=== PATIENT | male | born 1960 | race African-American/Black ===

== ENCOUNTER 2016-07-09 11:10 | Emergency (ER) | payer MEDICARE ==
[~2016-07-09] VITALS: Wt 78.0 kg
[~2016-07-09 11:10] MED LIST: IBUP800T25 PO
[2016-07-09] MEDS ORDERED: DIPHENHYDRAMINE 25 MG CAP PO ONE (12:30)
[2016-07-09] MEDS ORDERED: IBUPROFEN 600 MG TAB PO ONE (12:30)
[2016-07-09] MEDS ORDERED: IBUP-1542 PO (12:39)
[2016-07-09] MEDS ORDERED: BACTDS PO (12:39)
[2016-07-09] MEDS ORDERED: CEPH-443 PO (12:39)
[2016-07-09 12:58] VITALS: BP 126/76; PULSE 86; RESP 19; TEMP 98.5
--- NOTE | 2016-07-09 14:46 | ERD ---
ER Documentation Chief Complaint Date/Time DATE: 07/09/16 TIME: 14:44 Chief Complaint PAIN ON TESTICULAR AREA, POSSIBLE ABCESS HPI Patient is a 56-year-old male with no medical problems who presents with scrotal pain. He says that he has "an abscess". He wants antibiotics. Please note the history and physical exam is limited as the patient does have flight of ideas and is difficult to get a history from. Upon review of old medical records the patient has one previous visit to the ER in June 2016. He has had no fevers. He has had no treatment as of yet. ROS All systems reviewed and are negative except as per history of present illness. Medications Home Meds Active Scripts Ibuprofen* (Motrin*) 600 Mg Tab, 600 MG PO Q6H Y for PAIN AND OR ELEVATED TEMP, #30 TAB Prov:GASTON GOMEZ MD 07/09/16 Sulfamethoxazole-Trimethoprim* (Bactrim* DS) 800-160 Mg Tab, 1 TAB PO BID for 7 Days, TAB Prov:GASTON GOMEZ MD 07/09/16 Cephalexin* (Keflex*) 500 Mg Capsule, 500 MG PO QID for 7 Days, CAP Prov:GASTON GOMEZ MD 07/09/16 Ibuprofen* (Motrin*) 800 Mg Tab, 800 MG PO Q6H Y for PAIN AND OR ELEVATED TEMP, #30 TAB Prov:LENORA GONZALEZ MD 06/02/16 PMhx/Soc Hx Psychiatric Problems: Yes (talking to self) Hx Alcohol Use: No Hx Substance Use: No Hx Tobacco Use: No Smoking Status: Never smoker FmHx Family History: No diabetes Physical Exam Vitals Vital Signs Date Time Temp Pulse Resp B/P Pulse Ox O2 Delivery O2 Flow Rate FiO2 07/09/16 12:58 98.5 86 19 126/76 100 Room Air 07/09/16 11:22 97.2 67 18 120/78 100 Physical Exam Const: No acute distress Head: Atraumatic Eyes: Normal Conjunctiva ENT: Normal External Ears, Nose and Mouth. Neck: Full range of motion..~ No meningismus. Resp: Clear to auscultation bilaterally Cardio: Regular rate and rhythm, no murmurs Abd: Soft, non tender, non distended. Normal bowel sounds Skin: No petechiae or rashes Back: No midline or flank tenderness Ext: No cyanosis, or edema Neur: Awake and alert : Patient only has one testicle from previous testicular surgery as a child , there is mild scrotal erythema but no signs of testicular torsion at this time , no signs of scrotal abscess, no Otilio's gangrene Results 24 hrs Current Medications Medications (Trade) Dose Ordered Sig/Zayda Route PRN Reason Start Time Stop Time Status Last Admin Dose Admin Diphenhydramine HCl (Benadryl) 25 mg ONCE ONCE PO 07/09/16 12:30 07/09/16 12:31 DC Ibuprofen (Motrin) 600 mg ONCE ONCE PO 07/09/16 12:30 07/09/16 12:31 DC Procedures/MDM Patient is a 56-year-old male who presents with what appears to be a scrotal cellulitis. I believe outpatient management is appropriate with Keflex and Bactrim. I doubt testicular torsion. The patient is stable for outpatient management. He can return for any worsening symptoms. The patient understands the plan is okay for discharge at this time. He could return for any worsening symptoms. Departure Diagnosis: Primary Impression: Cellulitis Site of cellulitis: unspecified site Qualified Code: L03.90 - Cellulitis, unspecified cellulitis site Additional Impression: Pain Condition: Fair Patient Instructions: Cellulitis Referrals: [facility] YOU HAVE RECEIVED A MEDICAL SCREENING EXAM AND THE RESULTS INDICATE THAT YOU DO NOT HAVE A CONDITION THAT REQUIRES URGENT TREATMENT IN THE EMERGENCY DEPARTMENT. FURTHER EVALUATION AND TREATMENT OF YOUR CONDITION CAN WAIT UNTIL YOU ARE SEEN IN YOUR DOCTORS OFFICE WITHIN THE NEXT 1-2 DAYS. IT IS YOUR RESPONSIBILITY TO MAKE AN APPOINTMENT FOR FOLOW-UP CARE. IF YOU HAVE A PRIMARY DOCTOR --you should call your primary doctor and schedule an appointment IF YOU DO NOT HAVE A PRIMARY DOCTOR YOU CAN CALL OUR PHYSICIAN REFERRAL HOTLINE AT IF YOU CAN NOT AFFORD TO SEE A PHYSICIAN YOU CAN CHOSE FROM THE FOLLOWING [facility] [address] [facility] [address] [facility] [address] [facility] [address] [facility] [address] [facility]. [facility] [address] Additional Instructions: Call your primary care doctor TOMORROW for an appointment during the next 1-2 days.See the doctor sooner or return here if your condition worsens before your appointment time. GASTON GOMEZ MD Jul 09, 2016 14:46
== END 2016-07-09 12:59 | disposition home or self-care (01) ==
LOC: FTE 11:10 → E/R 12:59
DX: N49.2 Inflammatory disorders of scrotum (principal)
CPT/HCPCS: 99284

== ENCOUNTER 2016-12-25 11:08 | Emergency (ER) | payer MEDICARE ==
[~2016-12-25] VITALS: Ht 165.1 cm; Wt 70.5 kg
[~2016-12-25 11:08] MED LIST changes: +BACTDS PO; +CEPH-443 PO; +IBUP-1542 PO
[2016-12-25 11:14] VITALS: Ht 165.1 cm; Wt 70.5 kg
[2016-12-25] MEDS ORDERED: PETROLATUM 28.35 GM JELLY TOP ONE (12:00)
[2016-12-25] MEDS ORDERED: HYDROCODONE/APAP (10/325) TAB PO ONE (12:00)
--- NOTE | 2016-12-25 12:51 | RADRPT ---
PROCEDURE: Scrotal ultrasound CLINICAL INDICATION: Testicle pain. Previous right new right TECHNIQUE: Scrotal ultrasound was performed with sagittal and transverse views. Scott scale and co edward imaging was performed. Images were reviewed on high resolution PACS monitors. COMPARISON: None available FINDINGS: The right testicle is surgically absent. The left testicle measures 4.0 x 2.3 x 3.7 cm. There is normal size and echogenicity and morphology. There is normal blood flow seen. Left epididymis appears normal. There is a trace There is no evidence for varicocele. The soft tissues are unremarkable. No mass or cyst or other abnormality is seen. IMPRESSION: 1. Surgically absent right testis. 2. Unremarkable ultrasound of the left testis. RPTAT: [facility] Physician Varsha Date Time Electronically viewed and signed by Physician Varsha on 12/25/2016 12:51 /
[2016-12-25] MEDS ORDERED: CLOT30CR24 TOP (13:05)
[2016-12-25] MEDS ORDERED: HYDR-902 PO (13:05)
--- NOTE | 2016-12-25 13:09 | ERD ---
ER Documentation Chief Complaint Date/Time DATE: 12/25/16 TIME: 13:06 Chief Complaint Complains of testicular pain and cracked lips HPI This is a 56-year-old male with a history of right testicle removal when he was 3 years old is complaining of pain to the left testicle for 2 days. He has no swelling no dysuria no hematuria no back pain or suprapubic pain. No abdominal pain or flank pain. He says the pain is sharp and worse with walking. He also complains of some chapped lips for the past week. No difficulty swallowing or swelling of the lips or tongue. ROS All systems reviewed and are negative except as per history of present illness. Medications Home Meds Active Scripts Clotrimazole* (Clotrimazole* AF) 1% - 30 Gm Cream.gm., 1 APPLIC TOP BID for 7 Days, TUB Prov:PEDRO PABLO FOWLERSTOLOS ACristina DO 12/25/16 Hydrocodone/Acetaminophen ([place] 10-325 Tablet) 1 Each Tablet, 1 TAB PO Q6H Y for PAIN, #7 TAB Prov:RUBINA FOWLER DO 12/25/16 Ibuprofen* (Motrin*) 600 Mg Tab, 600 MG PO Q6H Y for PAIN AND OR ELEVATED TEMP, #30 TAB Prov:GASTON GOMEZ MD 07/09/16 Sulfamethoxazole-Trimethoprim* (Bactrim* DS) 800-160 Mg Tab, 1 TAB PO BID for 7 Days, TAB Prov:GASTON GOMEZ MD 07/09/16 Cephalexin* (Keflex*) 500 Mg Capsule, 500 MG PO QID for 7 Days, CAP Prov:GASTON GOMEZ MD 07/09/16 Ibuprofen* (Motrin*) 800 Mg Tab, 800 MG PO Q6H Y for PAIN AND OR ELEVATED TEMP, #30 TAB Prov:LENORA GONZALEZ MD 06/02/16 Allergies Allergies: Coded Allergies: No Known Allergy (Unverified , 12/25/16) PMhx/Soc Medical and Surgical Hx: Unable to obtain Hx Psychiatric Problems: Yes (talking to self) Hx Alcohol Use: No Hx Substance Use: No Hx Tobacco Use: No Smoking Status: Never smoker FmHx Family History: No coronary disease Physical Exam Vitals Vital Signs Date Time Temp Pulse Resp B/P Pulse Ox O2 Delivery O2 Flow Rate FiO2 12/25/16 11:14 98.6 98 20 117/69 92 Physical Exam Const: Well-developed, well-nourished Head: Atraumatic, normocephalic Eyes: Normal Conjunctiva, PERRLA, EOMI, normal sclera, no nystagmus ENT: Normal External Ears, Nose and Mouth,, upper and lower lips with external chapping and crack moist mucus membranes. Neck: Full range of motion. No meningismus, no lymphadenopathy. Resp: Clear to auscultation bilaterally, no wheezing, rhonchi, rales Cardio: Regular rate and rhythm, no murmurs, S1 S2 present Abd: Soft, non tender x 4, non distended. Normal bowel sounds, no guarding or rebound, no pulsitile abdominal masses or bruits, the right testicle is not present in the left testicle as scrotal sac chafing but no signs of infection, the testicle is not swollen no epididymal tenderness Skin: No petechiae or rashes, no ecchymosis , no maculopapular rash Back: No midline or flank tenderness Ext: No cyanosis, or edema, FROM x 4, normal inspection, neurovascularly intact x 4 Neur: Awake and alert, STR 5/5 x 4, sensation intact x 4, no focal findings, cerebellum intact Psych: Normal Mood and Affect Results 24 hrs Current Medications Medications (Trade) Dose Ordered Sig/Zayda Route PRN Reason Start Time Stop Time Status Last Admin Dose Admin Acetaminophen/ Hydrocodone Bitart ([place] (10/325)) 1 tab ONCE ONCE PO 12/25/16 12:00 12/25/16 12:01 DC 12/25/16 12:25 Petrolatum (Vaseline) 1 applic ONCE ONCE TOP 12/25/16 12:00 12/25/16 12:01 DC Procedures/MDM PROCEDURE: Scrotal ultrasound CLINICAL INDICATION: Testicle pain. Previous right new right TECHNIQUE: Scrotal ultrasound was performed with sagittal and transverse views. Scott scale and color imaging was performed. Images were reviewed on high resolution PACS monitors. COMPARISON: None available FINDINGS: The right testicle is surgically absent. The left testicle measures 4.0 x 2.3 x 3.7 cm. There is normal size and echogenicity and morphology. There is normal blood flow seen. Left epididymis appears normal. There is a trace There is no evidence for varicocele. The soft tissues are unremarkable. No mass or cyst or other abnormality is seen. IMPRESSION: 1. Surgically absent right testis. 2. Unremarkable ultrasound of the left testis. RPTAT: [facility] Physician Varsha Date Time Electronically viewed and signed by Marcio Krishna Physician on 12/25/2016 12: 51 JH/ CC: RUBINA FOWLER DO Pain is likely from the chafing of the skin. The skin is not looking infected. He likely has a candidal infections scrotal sac. Will treat with topical antifungal Departure Diagnosis: Primary Impression: Chapped skin Encounter type: initial encounter Qualified Code: T69.8XXA - Chapped skin, initial encounter Additional Impressions: Chafing Pain in testicle Condition: Stable Patient Instructions: Kenzie Skin Infection (Adult) Additional Instructions: apply vaseline to lips RUBINA FOWLER DO Dec 25, 2016 13:09
[2016-12-26] MEDS ORDERED: CLOT30CR24 TOP (08:55)
[2016-12-26] MEDS ORDERED: IBUP-1542 PO (08:56)
== END 2016-12-25 13:31 | disposition home or self-care (01) ==
LOC: FTE 11:08
DX: T69.8XXA Other specified effects of reduced temperature, initial encounter (principal); L30.4 Erythema intertrigo; X31.XXXA Exposure to excessive natural cold, initial encounter; Y92.9 Unspecified place or not applicable
CPT/HCPCS: 76870

== ENCOUNTER 2016-12-26 08:04 | Emergency (ER) | payer MEDICARE ==
[~2016-12-26] VITALS: Ht 175.3 cm; Wt 72.0 kg
[~2016-12-26 08:04] MED LIST changes: +CLOT30CR24 TOP; +HYDR-902 PO
[2016-12-26 08:05] VITALS: Ht 175.3 cm; Wt 72.0 kg
[2016-12-26] MEDS ORDERED: CLOT30CR24 TOP (08:55)
[2016-12-26] MEDS ORDERED: IBUP-1542 PO (08:56)
[2016-12-26] MEDS ORDERED: IBUPROFEN 800 MG TAB PO ONE (09:00)
[2016-12-26 09:15] VITALS: BP 132/75; PULSE 81; RESP 17; TEMP 98.4
--- NOTE | 2016-12-26 11:31 | ERD ---
ER Documentation Chief Complaint Date/Time DATE: 12/26/16 TIME: 11:29 Chief Complaint PAINFUL PENIS AND TESTES HPI Patient is a 56-year-old male with no medical problems who presents with scrotal pain. The patient says that he has had this for the past 4 days. He was here yesterday for the same. He had an ultrasound which showed a normal testicle at that time. He has had the right testicle artery removed. He said that he had a prescription given to him yesterday but he burned it by mistake. Upon review of old medical records this is the patient's fourth visit to the ER since 2016. ROS All systems reviewed and are negative except as per history of present illness. Medications Home Meds Active Scripts Ibuprofen* (Motrin*) 600 Mg Tab, 600 MG PO Q8, #30 TAB Prov:GASTON GOMEZ MD 12/26/16 Clotrimazole* (Clotrimazole* AF) 1% - 30 Gm Cream.gm., 1 APPLIC TOP BID for 7 Days, TUB Prov:GASTON GOMEZ MD 12/26/16 Clotrimazole* (Clotrimazole* AF) 1% - 30 Gm Cream.gm., 1 APPLIC TOP BID for 7 Days, TUB Prov:RUBINA FOWLER DO 12/25/16 Hydrocodone/Acetaminophen ([place] 10-325 Tablet) 1 Each Tablet, 1 TAB PO Q6H Y for PAIN, #7 TAB Prov:RUBINA FOWLER DO 12/25/16 Ibuprofen* (Motrin*) 600 Mg Tab, 600 MG PO Q6H Y for PAIN AND OR ELEVATED TEMP, #30 TAB Prov:GASTON GOMEZ MD 07/09/16 Sulfamethoxazole-Trimethoprim* (Bactrim* DS) 800-160 Mg Tab, 1 TAB PO BID for 7 Days, TAB Prov:GASTON GOMEZ MD 07/09/16 Cephalexin* (Keflex*) 500 Mg Capsule, 500 MG PO QID for 7 Days, CAP Prov:GASTON GOMEZ MD 07/09/16 Ibuprofen* (Motrin*) 800 Mg Tab, 800 MG PO Q6H Y for PAIN AND OR ELEVATED TEMP, #30 TAB Prov:LENORA GONZALEZ MD 12/2/16 Allergies Allergies: Coded Allergies: No Known Allergy (Unverified , 12/26/16) PMhx/Soc Medical and Surgical Hx: pt denies Medical Hx, pt denies Surgical Hx Hx Psychiatric Problems: Yes (talking to self) Hx Alcohol Use: Yes Hx Substance Use: Yes Hx Tobacco Use: Yes Smoking Status: Current some day smoker FmHx Family History: No diabetes Physical Exam Vitals Vital Signs Date Time Temp Pulse Resp B/P Pulse Ox O2 Delivery O2 Flow Rate FiO2 12/26/16 09:15 98.4 81 17 132/75 98 Room Air 12/26/16 08:05 98.5 86 18 127/71 98 Physical Exam Const: No acute distress Head: Atraumatic Eyes: Normal Conjunctiva ENT: Normal External Ears, Nose and Mouth. Neck: Full range of motion..~ No meningismus. Resp: Clear to auscultation bilaterally Cardio: Regular rate and rhythm, no murmurs Abd: Soft, non tender, non distended. Normal bowel sounds Skin: No petechiae or rashes Back: No midline or flank tenderness Ext: No cyanosis, or edema Neur: Awake and alert : Scrotal redness and thickening, no obvious testicular swelling, previous right testicle removal Results 24 hrs Current Medications Medications (Trade) Dose Ordered Sig/Zayda Route PRN Reason Start Time Stop Time Status Last Admin Dose Admin Ibuprofen (Motrin) 800 mg ONCE ONCE PO 12/26/16 09:00 12/26/16 09:01 DC 12/26/16 09:07 Procedures/MDM Patient is a 56-year-old male who presents with what appears to be acute tinea cruris. The patient will be discharged with prescription for clotrimazole and ibuprofen. The patient can return for any worsening symptoms. At this point I believe outpatient management is appropriate. The patient can return for any worsening symptoms. Departure Diagnosis: Primary Impression: Tinea cruris Condition: Fair Patient Instructions: Tinea Cruris, General Referrals: [facility] YOU HAVE RECEIVED A MEDICAL SCREENING EXAM AND THE RESULTS INDICATE THAT YOU DO NOT HAVE A CONDITION THAT REQUIRES URGENT TREATMENT IN THE EMERGENCY DEPARTMENT. FURTHER EVALUATION AND TREATMENT OF YOUR CONDITION CAN WAIT UNTIL YOU ARE SEEN IN YOUR DOCTORS OFFICE WITHIN THE NEXT 1-2 DAYS. IT IS YOUR RESPONSIBILITY TO MAKE AN APPOINTMENT FOR FOLOW-UP CARE. IF YOU HAVE A PRIMARY DOCTOR --you should call your primary doctor and schedule an appointment IF YOU DO NOT HAVE A PRIMARY DOCTOR YOU CAN CALL OUR PHYSICIAN REFERRAL HOTLINE AT IF YOU CAN NOT AFFORD TO SEE A PHYSICIAN YOU CAN CHOSE FROM THE FOLLOWING [facility] [address] [facility] [address] [facility] [address] [facility] [address] [facility] [address] [facility]. [facility] [address] Additional Instructions: Call your primary care doctor TOMORROW for an appointment during the next 1-2 days.See the doctor sooner or return here if your condition worsens before your appointment time. GASTON GOMEZ MD Dec 26, 2016 11:31
== END 2016-12-26 09:15 | disposition home or self-care (01) ==
LOC: E/R 08:04
DX: B35.6 Tinea cruris (principal); F17.210 Nicotine dependence, cigarettes, uncomplicated
CPT/HCPCS: 99283